=== PATIENT | male | born 1950 | race Caucasian/White ===

== ENCOUNTER → 2018-01-17 | Outpatient (CLI) | payer MEDICARE ==
[~2018-01-17] MED LIST: BUPR-87 PO; CETI-101 PO; CITA40TA14 PO; LEVO50TA11 PO
== END | disposition home or self-care (01) ==
LOC: RAH 16:27
PROVIDERS: ATTEND Internal Medicine
DX: M51.37 Other intervertebral disc degeneration, lumbosacral region (principal); M43.06 Spondylolysis, lumbar region
CPT/HCPCS: 72100

== ENCOUNTER → 2018-02-02 | Outpatient (CLI) | payer MEDICARE | END | disposition home or self-care (01) | LOC: OIH 14:03 | PROVIDERS: ATTEND Neurological Surgery | DX: M43.16 Spondylolisthesis, lumbar region (principal); M51.36 Other intervertebral disc degeneration, lumbar region | CPT/HCPCS: 72110 ==

== ENCOUNTER 2018-02-09 11:15 | Inpatient (IN) | payer MEDICARE ==
[~2018-02-09] VITALS: Ht 177.8 cm; Wt 79.5 kg
[2018-02-19 12:29] LABS: BASOPHILS % (AUTO) 1.4 % (0.0-5.0); EOSINOPHILS % (AUTO) 6.7 % (0.0-8.0); HEMATOCRIT 38.6 % (42-54); MEAN CORPUSCULAR HEMOGLOBIN 25.5 pg (27.0-33.0); MEAN CORPUSCULAR VOLUME 77.4 fL (79-99); MONOCYTES % (AUTO) 9.1 % (3.0-13.0); NEUTROPHILS % (AUTO) 44.8 % (40.0-77.0); NUCLEATED RED BLOOD CELLS 0.1 % (0.0-0.19); PLATELET COUNT (AUTO) 322 K/uL (130-400); RED BLOOD CELL COUNT(AUTO) 4.99 MIL/uL (4.50-6.20); RED CELL DISTRIBUTION WIDTH 20.1 % (11.0-15.5); WHITE BLOOD COUNT (AUTO) 3.8 K/uL (4.8-10.8)
[2018-02-19 12:38] LABS: CREATININE 0.9 mg/dL (0.5-1.5); POTASSIUM 4.9 mmol/L (3.5-5.1)
[2018-02-19 12:40] VITALS: BP 154/80
[2018-02-19] MEDS ORDERED: LEVO50TA11 PO (12:42)
[2018-02-19] MEDS ORDERED: BUPR-87 PO (12:42)
[2018-02-19] MEDS ORDERED: CITA40TA14 PO (12:42)
[2018-02-21] VITALS (20 sets, daily range): BP systolic 82–139; BP diastolic 44–88
[2018-02-21] MEDS ORDERED: LACTATED RINGERS 1000ML 1,000 ML IV ONE (06:05)
[2018-02-21] MEDS ORDERED: BUPIVACAINE/PF 0.25% 30ML VIAL IJ ONE (06:09)
[2018-02-21] MEDS ORDERED: EPINEPHRINE 1 MG/ML AMPULE ONE (06:10)
[2018-02-21] MEDS ORDERED: THROMBIN-JMI 20000 UNIT KIT TP ONE (06:10)
[2018-02-21] MEDS ORDERED: BACITRACIN 50,000 UNIT VIAL ONE ×2 (06:10→11:30)
[2018-02-21] MEDS ORDERED: DURAMORPH PF1 MG/ML 10ML AMP IV ONE (06:11)
[2018-02-21] MEDS: CEFAZOLIN SODIUM 1 GM VIAL ONE ×2 (06:35→07:25)
[2018-02-21] MEDS ORDERED: PROPOFOL 10 MG/ML 20ML VIAL IV ONE ×2 (07:08→08:53)
[2018-02-21] MEDS ORDERED: MIDAZOLAM HCL 1 MG/ML 2ML VIAL ONE (07:08)
[2018-02-21] MEDS ORDERED: FENTANYL CITRATE PF 50 MCG/1 ML 2ML VIAL ONE ×4 (07:08→09:43)
[2018-02-21] MEDS ORDERED: SUCCINYLCHOLINE CHLORIDE 20 MG/ML 10 ML VIAL ONE (07:11)
[2018-02-21] MEDS ORDERED: ROCURONIUM BROMIDE 10MG/1ML 5ML VL ONE (07:11)
[2018-02-21] MEDS ORDERED: EPHEDRINE SULFATE 50 MG/ML AMPULE ONE (07:24)
[2018-02-21] MEDS ORDERED: LIDOCAINE PF 2% 5ML ABBOJECT ONE (07:42)
[2018-02-21] MEDS ORDERED: GLYCOPYRROLATE 0.2 MG/ML 5 ML VIAL ONE (07:42)
[2018-02-21] MEDS ORDERED: ONDANSETRON HCL 4 MG/2 ML VIAL ONE (07:42)
[2018-02-21] MEDS ORDERED: NEOSTIGMINE 5MG/5ML SYR IV ONE (07:42)
[2018-02-21] MEDS ORDERED: VECURONIUM BROMIDE 10 MG ML IV ONE (08:17)
[2018-02-21] MEDS ORDERED: ALBUMIN (HUMAN) 5% 250 ML IV ONE (11:05)
[2018-02-21] MEDS ORDERED: GENTAMICIN SULFATE 80 MG/2 ML VIAL ONE (11:47)
[2018-02-21] MEDS ORDERED: CEFAZOLIN SODIUM 1 GM VIAL ONE (11:49)
[2018-02-21] MEDS ORDERED: PHENYLEPHRINE HCL 10 MG/ML 1ML VIAL IV ONE ×2 (11:56)
[2018-02-21] MEDS ORDERED: SODIUM CHLORIDE 0.9% 10 ML VIAL ONE (11:56)
[2018-02-21] MEDS ORDERED: MORPHINE SULFATE 10 MG/ML 1ML SYG ONE (13:55)
[2018-02-21] MEDS ORDERED: PROMETHAZINE HCL 25 MG/ML 1ML AMPULE IM PRN (14:15)
[2018-02-21] MEDS ORDERED: CEFAZOLIN 2GM / 50 ML 50 ML IV SCH (14:15)
[2018-02-21] MEDS ORDERED: HYDROCODONE/ACETAMINOPHEN 5/325 MG TAB PO PRN (14:15)
[2018-02-21] MEDS ORDERED: SODIUM CHLORIDE 0.9% 10 ML VIAL IVP PRN (14:15)
[2018-02-21] MEDS: DEXAMETHASONE SOD PHOSPHATE 4 MG/ML 1ML VIAL IVP SCH ×2 (14:15→20:44)
[2018-02-21] MEDS ORDERED: MORPHINE SULFATE 4 MG/1ML SYG IVP PRN (14:15)
[2018-02-21] MEDS ORDERED: CEFAZOLIN SODIUM 1 GM VIAL IVP SCH (15:00)
[2018-02-21] MEDS ORDERED: DiphenhydrAMINE HCL 50 MG/ML VIAL IV PRN (16:30)
[2018-02-21] MEDS: LACTATED RINGERS 1000ML 1,000 ML IV SCH (19:12)
[2018-02-21] MEDS: BUPROPION HCL 150 MG TABLET.SA PO SCH (20:44)
[2018-02-22 00:09] VITALS: BP 118/69
[2018-02-22] MEDS: LACTATED RINGERS 1000ML 1,000 ML IV SCH (03:03)
[2018-02-22] MEDS: DEXAMETHASONE SOD PHOSPHATE 4 MG/ML 1ML VIAL IVP SCH ×2 (03:03→08:15)
[2018-02-22] MEDS ORDERED: TRAMADOL HCL 50 MG TABLET ONE (03:08)
[2018-02-22] MEDS ORDERED: TRAMADOL HCL 50 MG TABLET PO PRN (03:15)
[2018-02-22] MEDS ORDERED: CETI-101 PO (03:29)
[2018-02-22] MEDS ORDERED: CETIRIZINE HCL 5 MG TABLET PO PRN (03:30)
[2018-02-22 04:09] VITALS: BP 108/71
[2018-02-22] MEDS ORDERED: LEVOTHYROXINE 50 MCG TABLET PO SCH (06:30)
[2018-02-22] MEDS: BUPROPION HCL 150 MG TABLET.SA PO SCH (08:41)
[2018-02-22] MEDS ORDERED: CITALOPRAM 20 MG TABLET PO SCH (09:00)
== END 2018-02-22 11:00 | disposition home or self-care (01) | DRG 460 ==
LOC: EDSTATUS 11:15 → DAHIP 02-21 05:52 → 4BH 02-21 15:25
PROVIDERS: ADMIT Neurological Surgery; ATTEND Neurological Surgery
PROC: 0SG30AJ Fusion of Lumbosacral Joint with Interbody Fusion Device, Posterior Approach, Anterior Column, Open Approach (ICD-10-PCS; principal; 2018-02-21 07:15)
PROC: 0SG00AJ Fusion of Lumbar Vertebral Joint with Interbody Fusion Device, Posterior Approach, Anterior Column, Open Approach (ICD-10-PCS; 2018-02-21 07:15)
PROC: 01NB0ZZ Release Lumbar Nerve, Open Approach (ICD-10-PCS; 2018-02-21 07:15)
PROC: 3E0R3BZ Introduction of Anesthetic Agent into Spinal Canal, Percutaneous Approach (ICD-10-PCS; 2018-02-21 07:15)
PROC: 4A10X4G Monitoring of Central Nervous Electrical Activity, Intraoperative, External Approach (ICD-10-PCS; 2018-02-21 07:15)
DX: M48.061 Spinal stenosis, lumbar region without neurogenic claudication (principal); M43.16 Spondylolisthesis, lumbar region; M47.9 Spondylosis, unspecified; M43.17 Spondylolisthesis, lumbosacral region; M54.10 Radiculopathy, site unspecified
CPT/HCPCS: 36415; 76000; 80048; 85025; A4218; A4344; C1713; J0171; J0330; J0690; J1100; J1580; J2001; J2250; J2270; J2274; J2370; J2405; J2550; J2704; J2710; J3010; J3490; J7120; P9045

== ENCOUNTER → 2018-03-19 | Outpatient (CLI) | payer MEDICARE | END | disposition home or self-care (01) | LOC: OIH 09:38 | PROVIDERS: ATTEND Neurological Surgery | DX: S33.39XA Dislocation of other parts of lumbar spine and pelvis, initial encounter (principal); M43.17 Spondylolisthesis, lumbosacral region; M48.061 Spinal stenosis, lumbar region without neurogenic claudication; X58.XXXA Exposure to other specified factors, initial encounter; Y93.89 Activity, other specified; Y92.89 Other specified places as the place of occurrence of the external cause; Y99.8 Other external cause status; Z98.1 Arthrodesis status | CPT/HCPCS: 72100 ==

== ENCOUNTER 2018-09-15 03:50 | Emergency (ER) | payer MEDICARE ==
[2018-09-15] MEDS ORDERED: SODIUM CHLORIDE 0.9% 1000ML 1,000 ML IV ONE (04:41)
[2018-09-15] MEDS ORDERED: KETOROLAC TROMETHAMINE 30MG/ML ONE (04:42)
[2018-09-15] MEDS ORDERED: PROCHLORPERAZINE EDISYLATE 10 MG/2 ML VIAL ONE (04:42)
[2018-09-15 04:48] LABS: BASOPHILS % (AUTO) 0.9 % (0.0-5.0); EOSINOPHILS % (AUTO) 2.4 % (0.0-8.0); HEMATOCRIT 36.9 % (42-54); LYMPHOCYTES % (AUTO) 17.8 % (21.0-51.0); MEAN CORPUSCULAR HEMOGLOBIN 25.4 pg (27.0-33.0); MEAN CORPUSCULAR HGB CONC 32.8 g/dL (32.0-36.0); MEAN CORPUSCULAR VOLUME 77.5 fL (79-99); MONOCYTES % (AUTO) 6.2 % (3.0-13.0); NEUTROPHILS % (AUTO) 72.7 % (40.0-77.0); PLATELET COUNT (AUTO) 265 K/uL (130-400); RED BLOOD CELL COUNT(AUTO) 4.76 MIL/uL (4.50-6.20); RED CELL DISTRIBUTION WIDTH 18.9 % (11.0-15.5); WHITE BLOOD COUNT (AUTO) 4.2 K/uL (4.8-10.8)
[2018-09-15 04:56] LABS: CREATININE 0.9 mg/dL (0.5-1.5); POTASSIUM 3.7 mmol/L (3.5-5.1)
== END 2018-09-15 06:16 | disposition home or self-care (01) ==
LOC: EDH 03:50
DX: R51 Headache (principal); Z87.891 Personal history of nicotine dependence
CPT/HCPCS: 36415; 70450; 80048; 85025; 96374; 96375; 99284; J0780; J1885; J7030

== ENCOUNTER → 2018-11-05 | Outpatient (CLI) | payer MEDICARE | END | disposition home or self-care (01) | LOC: RAH 11:35 | PROVIDERS: ATTEND Orthopaedic Surgery | DX: M75.121 Complete rotator cuff tear or rupture of right shoulder, not specified as traumatic (principal); M19.011 Primary osteoarthritis, right shoulder | CPT/HCPCS: 73221 ==

== ENCOUNTER 2018-12-27 07:00 | Day surgery (SDC) | payer MEDICARE ==
[2018-12-24 14:52] VITALS: BP 121/59
[2018-12-26] MEDS: CEFAZOLIN SODIUM 1 GM VIAL IVP SCH (13:00)
[2018-12-27] VITALS (12 sets, daily range): BP systolic 109–145; BP diastolic 47–83
[~2018-12-27] VITALS: Ht 177.8 cm; Wt 73.0 kg
[~2018-12-27 07:00] MED LIST changes: +ASPI-555 PO; -BUPR-87 PO; +CITA-106 PO; -CITA40TA14 PO
[2018-12-27] MEDS ORDERED: LACTATED RINGERS 1000ML 1,000 ML IV ONE (07:23)
[2018-12-27] MEDS ORDERED: PROPOFOL 10 MG/ML 20ML VIAL IV ONE (07:46)
[2018-12-27] MEDS ORDERED: ONDANSETRON HCL 4 MG/2 ML VIAL ONE (07:46)
[2018-12-27] MEDS ORDERED: ROCURONIUM 10MG/1ML SYR 10 MG/ML ML ONE ×2 (07:48→09:07)
[2018-12-27] MEDS ORDERED: MIDAZOLAM HCL 1 MG/ML 2ML VIAL ONE (07:48)
[2018-12-27] MEDS ORDERED: FENTANYL CITRATE PF 50 MCG/1 ML 2ML VIAL ONE (07:50)
[2018-12-27] MEDS: CEFAZOLIN SODIUM 1 GM VIAL IVP SCH (08:17)
[2018-12-27] MEDS ORDERED: EPHEDRINE SULFATE 50 MG/ML AMPULE ONE (08:44)
[2018-12-27] MEDS ORDERED: GLYCOPYRROLATE 1 MG/5 ML SYRINGE ONE (09:31)
[2018-12-27] MEDS ORDERED: PHENYLEPHRINE HCL 10 MG/ML 1ML VIAL IV ONE (09:50)
[2018-12-27] MEDS ORDERED: NEOSTIGMINE 5MG/5ML SYR IV ONE (10:03)
--- NOTE | 2018-12-27 11:10 | NUR ---
RECEIVED AWAKE,NO COMPLAINTS ,DRESSING TO RT SHOULDER INTACT,CLEAN AND DRY ,WITH IMMOBILIZER IN PLACE ,STRONG RADIAL PULSE TO RT ,UNABLE TO FEEL ,DUE TO BLOCK HAS GOOD CAPILLARY REFILL,PINK ,WARM TO TOUCH,,IN NO DISTRESS,CALL SAHU IN REACH
--- NOTE | 2018-12-27 11:55 | NUR ---
WRITTEN INSTRUCTIONS GIVEN TO DAUGHTER AND WENT OVER THEM,VERBALIZE UNDERSTANDING
--- NOTE | 2018-12-27 12:00 | NUR ---
CARLOS GAMBOA IN ROOM TO SHOW PT AND DAUGHTER ON HOW TO APPLY AND REMOVE IMMOBILIZER TO RT ARM,,,DISCHARGE INSTRUCTIONS WERE GIVEN TO DAUGHTER ,WITH PRESCRIPTION ,,VERBALIZED UNDERSTANDING,,,
--- NOTE | 2018-12-27 12:10 | NUR ---
TO CAR VIA W/C
== END 2018-12-27 12:10 ==
LOC: DAH 07:00
PROVIDERS: ATTEND Orthopaedic Surgery
DX: M75.101 Unspecified rotator cuff tear or rupture of right shoulder, not specified as traumatic (principal); M75.41 Impingement syndrome of right shoulder; M94.211 Chondromalacia, right shoulder; Z79.899 Other long term (current) drug therapy; Z98.890 Other specified postprocedural states; M19.90 Unspecified osteoarthritis, unspecified site; Z87.891 Personal history of nicotine dependence
CPT/HCPCS: 29822; 29826; 29827; 64415; A4215; A4218; A4248; A4452; A4565; A4649 ×7; C1713 ×2; J0690; J2250; J2370; J2405; J2704; J2710; J3010; J3490 ×2; J7120 ×2

== ENCOUNTER → 2019-12-20 | Outpatient (CLI) | payer MEDICARE ==
[~2019-12-20] MED LIST changes: -CETI-101 PO; +CETI-109 PO; +GADODIAMIDE 10 MMOL/20 ML VIAL IV ONE
== END | disposition home or self-care (01) ==
LOC: RAH 08:59
PROVIDERS: ATTEND Physical Medicine & Rehabilitation
DX: M48.061 Spinal stenosis, lumbar region without neurogenic claudication (principal)
CPT/HCPCS: 72158; A9579

== ENCOUNTER → 2020-02-12 | Outpatient (CLI) | payer MEDICARE ==
[~2020-02-12] MED LIST changes: -GADODIAMIDE 10 MMOL/20 ML VIAL IV ONE
== END | disposition home or self-care (01) ==
LOC: RAH 09:32
PROVIDERS: ATTEND Internal Medicine
DX: I08.0 Rheumatic disorders of both mitral and aortic valves (principal); J44.9 Chronic obstructive pulmonary disease, unspecified; J98.11 Atelectasis
CPT/HCPCS: 71046; 93306; 93356

== ENCOUNTER 2020-02-20 07:08 | Day surgery (SDC) | payer MEDICARE ==
[2020-02-20 07:30] VITALS: BP 136/84
--- NOTE | 2020-02-20 07:50 | NUR ---
CT LUMBAR MYELOGRAM PROCEDURE PERFORMED BY DR. MARTINEZ. PUNCTURE SITE LOW BACK AND PATIENT TOLERATED PROCEDURE WELL. CONTRAST INJECTION OF ISOVUE 190MG/19 ML GIVEN AT 0753 AND END OF PROCEDURE AT 0755. SPINAL NEEDLE REMOVED AND BANDAID APPLIED WITH NO BLEEDING NOTED. REPORT GIVEN TO DAVID BROWN DAYPATIENT NURSE A.Raul PATIENT TRANSPORTED TO DAYPATIENT VIA BED. AAO X 3 WITH NO C/O PAIN.
[2020-02-20 08:15] VITALS: BP 143/75
[2020-02-20 10:50] VITALS: BP 143/75
== END 2020-02-20 10:50 | disposition home or self-care (01) ==
LOC: DAH 07:08 → RAH 07:08
PROVIDERS: ATTEND Neurological Surgery
DX: M48.061 Spinal stenosis, lumbar region without neurogenic claudication (principal); M47.26 Other spondylosis with radiculopathy, lumbar region
CPT/HCPCS: 62304; 72132; A4215; A4221; A4222; A4223; A4663

== ENCOUNTER 2020-03-25 06:06 | Day surgery (SDC) | payer MEDICARE ==
[2020-03-23 10:04] LABS: APPEARANCE,URINE Clear (CLEAR); BILIRUBIN,URINE Negative (NEGATIVE); COLOR,URINE Yellow (YELLOW); GLUCOSE, URINE (UA) Negative (NEGATIVE); KETONES,URINE Negative (NEGATIVE); LEUKOCYTE ESTERASE ,URINE Negative (NEGATIVE); NITRATE,URINE Negative (NEGATIVE); OCCULT BLOOD,URINE Negative (NEGATIVE); PROTEIN,URINE Negative (NEGATIVE); UROBILINOGEN,URINE 0.2 mg/dL (0.2-1.0)
[2020-03-23 10:05] LABS: CREATININE 0.9 mg/dL (0.5-1.5); EOSINOPHILS % (AUTO) 5.2 % (0.0-8.0); HEMATOCRIT 43.2 % (42-54); LYMPHOCYTES % (AUTO) 40.5 % (21.0-51.0); MEAN CORPUSCULAR HEMOGLOBIN 27.1 pg (27.0-33.0); MEAN CORPUSCULAR VOLUME 87.4 fL (79-99); MONOCYTES % (AUTO) 9.6 % (3.0-13.0); NEUTROPHILS % (AUTO) 43.7 % (40.0-77.0); PLATELET COUNT (AUTO) 219 K/uL (130-400); POTASSIUM 4.4 mmol/L (3.5-5.1); RED BLOOD CELL COUNT(AUTO) 4.94 MIL/uL (4.50-6.20); RED CELL DISTRIBUTION WIDTH 15.3 % (11.0-15.5); WHITE BLOOD COUNT (AUTO) 2.9 K/uL (4.8-10.8)
[2020-03-23 10:19] LABS: INR 0.96 (0.85-1.15); PARTIAL THROMBOPLASTIN TIME 25.9 SEC (26.3-35.5); PROTHROMBIN TIME 10.4 SEC (9.6-11.6)
[2020-03-23 10:33] LABS: EOSINOPHILS % (MANUAL) 6 % (1-6); LYMPHOCYTES % (MANUAL) 45 % (22-44); MAN.DIFF COMMENT-IMPRESSION MANUAL DIFFERENTIAL; MONOCYTES % (MANUAL) 6 % (2-9); PLATELET MORPHOLOGY COMMENT ADEQUATE; SEGMENTED NEUTROPHILS % 43 % (40-70)
--- NOTE | 2020-03-24 13:36 | NUR ---
REPORT CALLED SOULEYMANE CAPONE FOR DR SEGUNDO AND INFORMED OF ABNORMAL CBC. NO NEW ORDERS RECEIVED MD WILL PROCEED WITH PROCEDURE.
[2020-03-24 13:38] VITALS: BP 142/67
[2020-03-25] VITALS (10 sets, daily range): BP systolic 111–166; BP diastolic 58–91
[~2020-03-25] VITALS: Ht 177.8 cm; Wt 75.7 kg
[~2020-03-25 06:06] MED LIST changes: -ASPI-555 PO; -CETI-109 PO; -CITA-106 PO; +CITA40TA14 PO
[2020-03-25] MEDS ORDERED: SODIUM CHLORIDE 0.9% 1000ML 1,000 ML IV ONE (06:22)
--- NOTE | 2020-03-25 09:34 | NUR ---
CALLED SOULEYMANE CAPONE TO CELL PHONE TO ADVISED HIM THAT PATIENT HAS A PULSE IN THE LOW 40'S AND HAS GONE DOWN TO 37 AT ONE POINT, PT STABLE NO C/O OF DIZZINESS, PT VOICED NO FEELING OF ILLNESS, BP 140/57, WILL CONTINUE TO MONITOR, PENDING CALL BACK.
[2020-03-25] MEDS ORDERED: LIDOCAINE HCL 2% 20ML ONE (10:23)
[2020-03-25] MEDS ORDERED: SODIUM BICARB 50MEQ 50ML VIAL ONE (10:23)
[2020-03-25] MEDS ORDERED: NITROGLYCERIN 2 MG/VIAL VIAL IV ONE (10:23)
[2020-03-25] MEDS ORDERED: IOHEXOL 350 MG/ML 100ML INFUS..BTL IV ONE (10:23)
[2020-03-25] MEDS ORDERED: ATROPINE SULFATE 0.1 MG/ML 10 ML SYG IVP ONE (11:05)
[2020-03-25] MEDS ORDERED: HEPARIN SODIUM 1000UNIT/ML 10ML VIAL ONE (11:15)
[2020-03-25] MEDS ORDERED: ENALAPRILAT DIHYDRATE 1.25 MG/ML 2ML VIAL IVP ONE (12:10)
--- NOTE | 2020-03-25 12:30 | NUR ---
late entry 1230 pt came back from heart cath procedure, patient remained bradycardia through out procedure and md aware, no new orders, continued to monitor patient, pt asymptomatic no complains.
--- NOTE | 2020-03-25 14:09 | NUR ---
gave report to bharathi matthews rn , no concerns voiced
== END 2020-03-25 16:35 | disposition home or self-care (01) ==
LOC: DAH 06:06
PROVIDERS: ATTEND Internal Medicine Cardiovascular Disease
DX: R06.00 Dyspnea, unspecified (principal); I25.10 Atherosclerotic heart disease of native coronary artery without angina pectoris; R06.02 Shortness of breath; R93.1 Abnormal findings on diagnostic imaging of heart and coronary circulation; Z79.899 Other long term (current) drug therapy
CPT/HCPCS: 36415; 71045; 80048; 81003; 85025; 85610; 85730; 93005; 93460; A4215; A4216; A4221; A4222; A4223 ×3; A4606; A4663; C1760; C1769; C1894 ×3; J1644 ×2; J3490 ×4; J7030; Q9965 ×2; Q9967; J0461

== ENCOUNTER → 2020-10-20 | Outpatient (CLI) | payer MEDICARE | END | disposition home or self-care (01) | LOC: RAH 09:01 | PROVIDERS: ATTEND Physical Medicine & Rehabilitation | DX: M47.816 Spondylosis without myelopathy or radiculopathy, lumbar region (principal); M48.061 Spinal stenosis, lumbar region without neurogenic claudication | CPT/HCPCS: 72110 ==

== ENCOUNTER → 2021-01-18 | Outpatient (CLI) | payer MEDICARE | END | disposition home or self-care (01) | LOC: RAH 15:05 | PROVIDERS: ATTEND Physical Medicine & Rehabilitation | DX: I70.201 Unspecified atherosclerosis of native arteries of extremities, right leg (principal) | CPT/HCPCS: 93926 ==

== ENCOUNTER → 2021-01-20 | Outpatient (CLI) | payer MEDICARE | END | disposition home or self-care (01) | LOC: RAH 13:38 | PROVIDERS: ATTEND Physical Medicine & Rehabilitation | DX: M25.551 Pain in right hip (principal) | CPT/HCPCS: 73502 ==

== ENCOUNTER → 2022-02-14 | Outpatient (CLI) | payer MEDICARE | END | disposition home or self-care (01) | LOC: RAH 14:25 | PROVIDERS: ATTEND Neurological Surgery | DX: M48.062 Spinal stenosis, lumbar region with neurogenic claudication (principal); S32.009K Unspecified fracture of unspecified lumbar vertebra, subsequent encounter for fracture with nonunion; X58.XXXD Exposure to other specified factors, subsequent encounter | CPT/HCPCS: 72100 ==

== ENCOUNTER 2022-05-11 12:02 | Emergency (ER) | payer MEDICARE ==
[~2022-05-11] VITALS: Ht 177.8 cm; Wt 72.6 kg
[2022-05-11 12:41] LABS: BASOPHILS % (AUTO) 0.6 % (0.0-5.0); EOSINOPHILS % (AUTO) 2.2 % (0.0-8.0); HEMATOCRIT 44.3 % (42-54); LYMPHOCYTES % (AUTO) 28.1 % (21.0-51.0); MEAN CORPUSCULAR HEMOGLOBIN 28.4 pg (27.0-33.0); MEAN CORPUSCULAR HGB CONC 33.2 g/dL (32.0-36.0); MEAN CORPUSCULAR VOLUME 85.5 fL (79-99); MONOCYTES % (AUTO) 9.2 % (3.0-13.0); NEUTROPHILS % (AUTO) 59.6 % (40.0-77.0); PLATELET COUNT (AUTO) 197 K/uL (130-400); RED BLOOD CELL COUNT(AUTO) 5.18 MIL/uL (4.50-6.20); RED CELL DISTRIBUTION WIDTH 16.7 % (11.0-15.5); WHITE BLOOD COUNT (AUTO) 3.6 K/uL (4.8-10.8)
[2022-05-11 12:54] LABS: CARBON DIOXIDE 33 mmol/L (21-32); CHLORIDE 104 mmol/L (101-111); CREATININE 0.8 mg/dL (0.5-1.5); GLOMERULAR FILTR. RATE CALC 101 mL/min (>60); GLUCOSE,RANDOM 96 mg/dL (70-105); POTASSIUM 4.6 mmol/L (3.5-5.1); SODIUM SERUM 142 mmol/L (136-145); UREA NITROGEN, BLOOD 10 mg/dL (7-18)
[2022-05-11 12:59] LABS: ALANINE AMINOTRANSFERASE 37 U/L (12-78); ALBUMIN 3.8 g/dL (3.5-5.0); ASPARTATE AMINOTRANSFERASE 26 U/L (10-37); TOTAL PROTEIN, SERUM 6.7 g/dL (6.0-8.3)
[2022-05-11 13:00] LABS: CRP QUANTITATIVE < 2.00 mg/L (0.00-9.0)
[2022-05-11 13:14] LABS: B-TYPE NATRIURETIC PEPTIDE 88 pg/mL (0-100)
[2022-05-11 14:08] VITALS: BP 166/91
== END 2022-05-11 14:11 | disposition home or self-care (01) ==
LOC: EDH 12:02
DX: R03.0 Elevated blood-pressure reading, without diagnosis of hypertension (principal); R53.1 Weakness; Z20.822 Contact with and (suspected) exposure to COVID-19; F32.A Depression, unspecified; F41.9 Anxiety disorder, unspecified
CPT/HCPCS: 99285; 71045; 87635; 84484; 80053; 83880; 85025; 87804 ×2; 86140; 36415; 93005; C9803

== ENCOUNTER → 2022-05-12 | Outpatient (CLI) | payer MEDICARE | END | disposition home or self-care (01) | LOC: RAH 14:21 | PROVIDERS: ATTEND Neurological Surgery | DX: M54.50 Low back pain, unspecified (principal); M54.00 Panniculitis affecting regions of neck and back, site unspecified; M54.16 Radiculopathy, lumbar region | CPT/HCPCS: 72131 ==

== ENCOUNTER → 2022-06-27 | Outpatient (CLI) | payer MEDICARE | END | disposition home or self-care (01) | LOC: RAH 10:50 | PROVIDERS: ATTEND Neurological Surgery | DX: M48.062 Spinal stenosis, lumbar region with neurogenic claudication (principal); M51.35 Other intervertebral disc degeneration, thoracolumbar region; M51.16 Intervertebral disc disorders with radiculopathy, lumbar region; Z98.890 Other specified postprocedural states | CPT/HCPCS: 72148 ==

== ENCOUNTER → 2022-11-23 | Outpatient (CLI) | payer MEDICARE | END | disposition home or self-care (01) | LOC: RAH 14:12 | PROVIDERS: ATTEND Neurological Surgery | DX: M47.27 Other spondylosis with radiculopathy, lumbosacral region (principal); M48.062 Spinal stenosis, lumbar region with neurogenic claudication; M40.47 Postural lordosis, lumbosacral region; M85.88 Other specified disorders of bone density and structure, other site | CPT/HCPCS: 72100 ==

== ENCOUNTER → 2023-12-11 | Outpatient (CLI) | payer MEDICARE ==
[2023-12-11 21:44] VITALS: PULSE 62; RESP 12
[2023-12-11 22:11] VITALS: PULSE 55; RESP 16
[2023-12-11 22:34] VITALS: PULSE 54; RESP 14
[2023-12-11 23:00] VITALS: PULSE 52; RESP 12
[2023-12-11 23:31] VITALS: PULSE 53; RESP 13
[2023-12-12] VITALS (10 sets, daily range): PULSE 48–55; RESP 10–18
== END | disposition home or self-care (01) ==
LOC: SLP 20:32
PROVIDERS: ATTEND Internal Medicine
DX: G47.33 Obstructive sleep apnea (adult) (pediatric) (principal); R53.82 Chronic fatigue, unspecified
CPT/HCPCS: 95810